=== PATIENT | female | born 1970 | race Caucasian/White ===

== ENCOUNTER 2020-07-16 20:53 | Emergency (ER) | payer BC ==
[2020-07-16 20:59] VITALS: BP 146/77; PULSE 94; RESP 20; TEMP 98.3
[2020-07-16] MEDS ORDERED: BACITRACIN OINT 1 EACH PACKET TOPICAL ONE (22:10)
--- NOTE | 2020-07-16 22:10 | ED ---
Burn/Smoke HPI - General Chief complaint: Burn/Smoke Inhalation Stated complaint: Left hand burn Time Seen by Provider: 07/16/20 21:25 Source: patient Mode of arrival: ambulatory Limitations: no limitations - History of Present Illness Initial comments: Patient is a 49-year-old female presenting to the emergency Department with complaints of a burn on her left hand. Patient states she did this about 2 hours prior to arrival. She was cooking dinner and sent a spatula down next to the gas stove and she went to grab it with her left hand and the spatula was extremely hot and slightly melted to her skin. She covered the burn and put ice on it. She states her tetanus is up-to-date. She has not taken any Tylenol or Motrin yet. She denies any fever or chills. She has no further complaints at this time. - Related Data Previous Rx's Medication Instructions Recorded Bacitracin Zinc Oint 1 applic TOPICAL BID 5 Days #1 tube 07/16/20 Allergies Allergy/AdvReac Type Severity Reaction Status Date / Time No Known Allergies Allergy Verified 07/16/20 20:59 Review of Systems ROS Statement: Those systems with pertinent positive or pertinent negative responses have been documented in the HPI. ROS Other: All systems not noted in ROS Statement are negative. Past Medical History Additional Past Medical History / Comment(s): migraines History of Any Multi-Drug Resistant Organisms: None Reported Past Surgical History: Section, Uterine Ablation Past Psychological History: No Psychological Hx Reported Smoking Status: Never smoker Past Alcohol Use History: Rare Past Drug Use History: None Reported General Exam - General Exam Comments Initial Comments: GENERAL: Patient is well-developed and well-nourished. Patient is nontoxic and in no acute distress. HEAD: Atraumatic, normocephalic. EYES: Pupils equal round and reactive to light, extraocular movements intact, sclera anicteric, conjunctiva are normal. Eyelids were unremarkable. ENT: TMs normal, nares patent, oropharynx clear without exudates. Moist mucous membranes. NECK: Normal range of motion, supple without lymphadenopathy or JVD. LUNGS: Unlabored respirations. Breath sounds clear to auscultation bilaterally and equal. No wheezes rales or rhonchi. HEART: Regular rate and rhythm without murmurs, rubs or gallops. ABDOMEN: Soft, nontender, normoactive bowel sounds. No guarding, no rebound. No masses appreciated. : Deferred MUSCULOSKELETAL: Normal extremities with adequate strength and normal range of motion, no pitting or edema. No clubbing or cyanosis. NEUROLOGICAL: Patient is alert and oriented x 3. Motor and sensory are also intact. Symmetrical smile. Normal speech, normal gait. PSYCH: Normal mood, normal affect. SKIN: Warm, Dry, normal turgor. Patient has a superficial second-degree burn of the right hand, palmar aspect, lateral over the hyperthenar eminence. There is mild blistering of the skin. The area is measuring approximately 2 cm x 1 cm. Limitations: no limitations Course Vital Signs 07/16/20 20:56 Temperature 98.3 F Pulse Rate 94 Respiratory 20 Rate Blood Pressure 146/77 O2 Sat by Pulse 98 Oximetry Medical Decision Making - Medical Decision Making Patient is a 49-year-old female with a superficial second-degree burn of the left hand, palmar aspect measuring 1 cm x 2 cm. Her tetanus is up-to-date. Patient will be covered with bacitracin as well as a bandage. She is to continue with these dressings for the next few days. She'll take Tylenol or Motrin for discomfort. Patient is stable for discharge. She is in agreement with this plan of care. She may follow up with her PCP. Return parameters were discussed with the patient and she verbalized understanding. Case discussed with Dr. Ricketts. Disposition Clinical Impression: Second degree burn of left hand Disposition: HOME SELF-CARE Condition: Stable Instructions (If sedation given, give patient instructions): Second Degree Burn (ED) Additional Instructions: Please return to the Emergency Department if symptoms worsen or any other concerns. Apply bacitracin cream twice a day, keep covered while working. May apply ice to area over bandage. May take tylenol or motrin for discomfort. Follow-up with PCP if needed. Prescriptions: Bacitracin Zinc Oint 1 applic TOPICAL BID 5 Days #1 tube Is patient prescribed a controlled substance at d/c from ED?: No Referrals: Nonstaff,Physician [Primary Care Provider] - 1-2 days
== END 2020-07-16 22:25 | disposition home or self-care (01) ==
LOC: EC 20:53
DX: T23.252A Burn of second degree of left palm, initial encounter (principal); X19.XXXA Contact with other heat and hot substances, initial encounter; Y93.G3 Activity, cooking and baking
CPT/HCPCS: 99283